=== PATIENT | male | born 1995 | race Caucasian/White ===

== ENCOUNTER 2020-07-02 12:05 | Outpatient (CLI) | payer OTHER ==
--- NOTE | 2020-07-02 12:39 | RAD ---
Exam: 3 views left RIBS HISTORY: Left rib cyst/mass nor some month ago. COMPARISON: none FINDINGS: On the upper oblique image, there is a radiodense marker. No associated radiographic abnorm ality. With regards to the left RIBS no fractures, cortical irregularity or periosteal reaction IMPRESSION: 1. No radiographic abnormality at the level of the marker. Further evaluation of a postcontrast CT is recommended.
== END 2020-07-02 12:06 | disposition home or self-care (01) ==
LOC: SCSRAD 12:05
PROVIDERS: ATTEND Family Medicine
DX: R07.81 Pleurodynia (principal)